=== PATIENT | female | born 1995 | race American Indian/Alaskan Native ===

== ENCOUNTER 2021-02-01 14:27 | Emergency (ER) | payer SELFPAY ==
[2021-02-01 14:47] VITALS: BP 133/82
--- NOTE | 2021-02-01 15:17 | Event Note ---
ED Screening Note Date of service: 02/01/21 Time: 15:16 ED Screening Note: 25-year-old female with no significant past medical history presents the emergency department chief complaint of intermittent dizziness that is now resolved. She reports she worked out and felt dizzy after which is abnormal for her. She was not sure if she was anemic but she has no history of anemia. She denies any known past medical history, current medications or known allergies to medications. This initial assessment/diagnostic orders/clinical plan/treatment(s) is/are subject to change based on patients health status, clinical progression and re- assessment by fellow clinical providers in the ED. Further treatment and workup at subsequent clinical providers discretion. Patient/guardian urged not to elope from the ED as their condition may be serious if not clinically assessed and managed. Initial orders include: EKG, CBC, CMP, urinalysis, urine test
[2021-02-01 16:07] LABS: Basophils % (Auto) 0.3 % (0.0-1.8); Eosinophils % (Auto) 0.4 % (0.0-4.3); Hematocrit 39.7 % (30.3-42.9); Hemoglobin 13.7 gm/dl (10.1-14.3); Lymphocytes % (Auto) 31.8 % (13.4-35.0); Mean Corpuscular HGB Conc 35 % (30-34); Mean Corpuscular Volume 84 fl (79-97); Monocytes # (Auto) 0.4 K/mm3 (0.0-0.8); Monocytes % (Auto) 5.7 % (0.0-7.3); Platelet Count 238 K/mm3 (140-440); Red Cell Distribution Width 12.8 % (13.2-15.2)
[2021-02-01 16:11] LABS: Alanine Aminotransferase 10 units/L (7-56); Albumin 4.4 g/dL (3.9-5); BUN/Creatinine Ratio 11; Blood Urea Nitrogen 9 mg/dL (7-17); Hemolysis Index 13
[2021-02-01 16:13] LABS: Bilirubin,Urine NEG (Negative); Blood,Urine NEG (Negative); Color,Urine Yellow (Yellow); Mucus,Urine FEW /HPF; Protein,Urine <15 mg/dL mg/dL (Negative); Urobilinogen,Urine < 2.0 mg/dL (<2.0); WBC,Urine < 1.0 /HPF (0.0-6.0)
[2021-02-01 16:15] LABS: RBC,Urine < 1.0 /HPF (0.0-6.0)
--- NOTE | 2021-02-01 17:10 | Emergency Department Report ---
ED General Adult HPI - General Chief complaint: Dizziness Stated complaint: DIZZINESS/WEAKNESS Time Seen by Provider: 02/01/21 15:13 Source: patient Mode of arrival: Ambulatory Limitations: No Limitations - History of Present Illness Initial comments: 25-year-old female with no significant past medical history presents the emergency department chief complaint of intermittent dizziness that is now resolved. She reports she worked out and felt dizzy after which is abnormal for her. She was not sure if she was anemic but she has no history of anemia. She denies any known past medical history, current medications or known allergies to medications. She also reports she recently had a sore throat and went saw a natural doctor who diagnosed her with strep throat and gave her a natural spray that has been helping clear up her throat is unsure if this is related. Severity scale (0 -10): 0 - Related Data Allergies Allergy/AdvReac Type Severity Reaction Status Date / Time No Known Allergies Allergy Unverified 02/01/21 14:45 ED Review of Systems ROS: Stated complaint: DIZZINESS/WEAKNESS Other details as noted in HPI Comment: All other systems reviewed and negative Constitutional: denies: chills, fever Eyes: denies: eye pain, eye discharge, vision change ENT: denies: ear pain, throat pain Respiratory: denies: cough, shortness of breath, wheezing Cardiovascular: denies: chest pain, palpitations Endocrine: no symptoms reported Gastrointestinal: denies: abdominal pain, nausea, diarrhea Genitourinary: denies: urgency, dysuria, discharge Musculoskeletal: denies: back pain, joint swelling, arthralgia Skin: denies: rash, lesions Neurological: denies: headache, weakness, paresthesias Psychiatric: denies: anxiety, depression Hematological/Lymphatic: denies: easy bleeding, easy bruising ED Past Medical Hx - Past Medical History Previous Medical History?: No - Surgical History Past Surgical History?: No ED Physical Exam - General Limitations: No Limitations General appearance: alert, in no apparent distress - Head Head exam: Present: atraumatic, normocephalic - Eye Eye exam: Present: normal appearance, PERRL, EOMI Pupils: Present: normal accommodation - ENT ENT exam: Present: normal exam, normal orophraynx, mucous membranes moist - Neck Neck exam: Present: normal inspection, full ROM. Absent: tenderness, meningismus - Respiratory Respiratory exam: Present: normal lung sounds bilaterally. Absent: respiratory distress, wheezes, rales, rhonchi, stridor - Cardiovascular Cardiovascular Exam: Present: regular rate, normal rhythm, normal heart sounds. Absent: systolic murmur, diastolic murmur, rubs, gallop - GI/Abdominal GI/Abdominal exam: Present: soft, normal bowel sounds. Absent: distended, tenderness, guarding, rebound, rigid - Extremities Exam Extremities exam: Present: normal inspection, full ROM, normal capillary refill. Absent: tenderness - Back Exam Back exam: Present: normal inspection, full ROM. Absent: tenderness, CVA tenderness (R) - Neurological Exam Neurological exam: Present: alert, oriented X3, CN II-XII intact, normal gait, other (Normal finger-nose, normal heel barth, normal gait without ataxia, negative Romberg sign) - Psychiatric Psychiatric exam: Present: normal affect, normal mood - Skin Skin exam: Present: warm, dry, intact, normal color. Absent: rash ED Course Vital Signs 02/01/21 14:45 Temperature 98.9 F Pulse Rate 105 H Respiratory 18 Rate Blood Pressure 133/82 [Right] O2 Sat by Pulse 98 Oximetry ED Medical Decision Making - Lab Data Result diagrams: 02/01/21 15:24 02/01/21 15:24 Lab Results 02/01/21 02/01/21 02/01/21 Range/Units 15:24 15:24 15:24 WBC 6.2 (4.5-11.0) K/mm3 RBC 4.70 (3.65-5.03) M/mm3 Hgb 13.7 (10.1-14.3) gm/dl Hct 39.7 (30.3-42.9) % MCV 84 (79-97) fl MCH 29 (28-32) pg MCHC 35 H (30-34) % RDW 12.8 L (13.2-15.2) % Plt Count 238 (140-440) K/mm3 Lymph % (Auto) 31.8 (13.4-35.0) % Clinton % (Auto) 5.7 (0.0-7.3) % Eos % (Auto) 0.4 (0.0-4.3) % Baso % (Auto) 0.3 (0.0-1.8) % Lymph # (Auto) 2.0 (1.2-5.4) K/mm3 Clinton # (Auto) 0.4 (0.0-0.8) K/mm3 Eos # (Auto) 0.0 (0.0-0.4) K/mm3 Baso # (Auto) 0.0 (0.0-0.1) K/mm3 Seg Neutrophils % 61.8 (40.0-70.0) % Seg Neutrophils # 3.8 (1.8-7.7) K/mm3 Sodium 136 L (137-145) mmol/L Potassium 4.3 (3.6-5.0) mmol/L Chloride 102.7 (98-107) mmol/L Carbon Dioxide 22 (22-30) mmol/L Anion Gap 16 mmol/L BUN 9 (7-17) mg/dL Creatinine 0.8 (0.6-1.2) mg/dL Estimated GFR > 60 ml/min BUN/Creatinine Ratio 11 % Glucose 85 (65-100) mg/dL Calcium 9.0 (8.4-10.2) mg/dL Total Bilirubin 0.50 (0.1-1.2) mg/dL AST 12 (5-40) units/L ALT 10 (7-56) units/L Alkaline Phosphatase 55 (35-129) units/L Total Protein 7.4 (6.3-8.2) g/dL Albumin 4.4 (3.9-5) g/dL Albumin/Globulin Ratio 1.5 % HCG, Qual Negative (Negative) Urine Color (Yellow) Urine Turbidity (Clear) Urine pH (5.0-7.0) Ur Specific Leburn (1.003-1.030) Urine Protein (Negative) mg/dL Urine Glucose (UA) (Negative) mg/dL Urine Ketones (Negative) mg/dL Urine Blood (Negative) Urine Nitrite (Negative) Urine Bilirubin (Negative) Urine Urobilinogen (<2.0) mg/dL Ur Leukocyte Esterase (Negative) Urine WBC (Auto) (0.0-6.0) /HPF Urine RBC (Auto) (0.0-6.0) /HPF U Epithel Cells (Auto) (0-13.0) /HPF Urine Mucus /HPF 02/01/21 Range/Units Unknown WBC (4.5-11.0) K/mm3 RBC (3.65-5.03) M/mm3 Hgb (10.1-14.3) gm/dl Hct (30.3-42.9) % MCV (79-97) fl MCH (28-32) pg MCHC (30-34) % RDW (13.2-15.2) % Plt Count (140-440) K/mm3 Lymph % (Auto) (13.4-35.0) % Clinton % (Auto) (0.0-7.3) % Eos % (Auto) (0.0-4.3) % Baso % (Auto) (0.0-1.8) % Lymph # (Auto) (1.2-5.4) K/mm3 Clinton # (Auto) (0.0-0.8) K/mm3 Eos # (Auto) (0.0-0.4) K/mm3 Baso # (Auto) (0.0-0.1) K/mm3 Seg Neutrophils % (40.0-70.0) % Seg Neutrophils # (1.8-7.7) K/mm3 Sodium (137-145) mmol/L Potassium (3.6-5.0) mmol/L Chloride (98-107) mmol/L Carbon Dioxide (22-30) mmol/L Anion Gap mmol/L BUN (7-17) mg/dL Creatinine (0.6-1.2) mg/dL Estimated GFR ml/min BUN/Creatinine Ratio % Glucose (65-100) mg/dL Calcium (8.4-10.2) mg/dL Total Bilirubin (0.1-1.2) mg/dL AST (5-40) units/L ALT (7-56) units/L Alkaline Phosphatase (35-129) units/L Total Protein (6.3-8.2) g/dL Albumin (3.9-5) g/dL Albumin/Globulin Ratio % HCG, Qual (Negative) Urine Color Yellow (Yellow) Urine Turbidity Clear (Clear) Urine pH 5.0 (5.0-7.0) Ur Specific Leburn 1.015 (1.003-1.030) Urine Protein <15 mg/dl (Negative) mg/dL Urine Glucose (UA) Neg (Negative) mg/dL Urine Ketones Neg (Negative) mg/dL Urine Blood Neg (Negative) Urine Nitrite Neg (Negative) Urine Bilirubin Neg (Negative) Urine Urobilinogen < 2.0 (<2.0) mg/dL Ur Leukocyte Esterase Neg (Negative) Urine WBC (Auto) < 1.0 (0.0-6.0) /HPF Urine RBC (Auto) < 1.0 (0.0-6.0) /HPF U Epithel Cells (Auto) 1.0 (0-13.0) /HPF Urine Mucus Few /HPF - Medical Decision Making Patient nontoxic in no acute distress. Vital signs are stable. She had no dizziness currently, labs were unremarkable. She had no chest pain initially an EKG was ordered however without chest pain shortness of breath palpitations I do not think this is a high yield test at this time. Patient stated this was after being treated for strep throat by a natural pathic doctor. On her throat exam she did have some mild erythema with exudate but no peritonsillar bulging, retropharyngeal bulging or television. She had no vertigo and no focal neur ologic findings on exam specifically no posterior circulation symptoms. Patient will be discharged stable condition with outpatient PCP follow-up and return to the ER with any change or worsening symptoms. She verbalized understanding the diagnosis, treatment plan and follow-up instructions and all of her questions were answered. - Differential Diagnosis Dehydration, anemia, viral illness Critical care attestation.: If time is entered above; I have spent that time in minutes in the direct care of this critically ill patient, excluding procedure time. ED Disposition Clinical Impression: Lightheaded Disposition: DC-01 TO HOME OR SELFCARE Is pt being admited?: No Instructions: Dizziness, [id number] Referrals: [facility] [Provider Group] - 3-5 Days CHU COLVIN MD [Staff Physician] - 3-5 Days Time of Disposition: 17:09
== END 2021-02-01 17:34 | disposition home or self-care (01) ==
LOC: ED 14:27
DX: R42 Dizziness and giddiness (principal)
CPT/HCPCS: 36415; 80053; 81001; 84703; 85025; 99283

== ENCOUNTER 2021-09-22 17:08 | Emergency (ER) | payer SELFPAY ==
[2021-09-22] MEDS ORDERED: ACETAMINOPHEN 500 MG TAB PO ONE (17:18)
--- NOTE | 2021-09-22 17:18 | Emergency Department Report ---
ED Abdominal Pain HPI - General Chief Complaint: Urogenital-Female Stated Complaint: VAGINAL PAIN Time Seen by Provider: 09/22/21 17:17 Source: patient Mode of arrival: Ambulatory Limitations: No Limitations - History of Present Illness Initial Comments: Patient presents with lower abdominal pain. The pain is cramping in the suprapubic area. It does not radiate or migrate. She has not had vaginal bleeding or discharge out of the ordinary. There is no trauma associated with this. She has no flank pain. The pain is not migratory. It does not radiate. It does seem to wax and wane. She has not taken anything for pain. It has been present for the last several days now. She decided to come here for evaluation and treatment due to the pain itself. She has never had pain like this before. - Related Data Previous Rx's Medication Instructions Recorded Last Taken Type Doxycycline Monohydrate 100 mg PO BID #20 capsule 09/22/21 Unknown Rx [Doxycycline Monohydrate CAP] Allergies Allergy/AdvReac Type Severity Reaction Status Date / Time No Known Allergies Allergy Unverified 02/01/21 14:45 ED Review of Systems ROS: Stated complaint: VAGINAL PAIN Other details as noted in HPI Comment: All other systems reviewed and negative Constitutional: denies: fever Eyes: denies: eye pain ENT: denies: throat pain Respiratory: denies: cough Cardiovascular: denies: chest pain Endocrine: denies: unexplained weight loss Gastrointestinal: as per HPI Genitourinary: denies: urgency Musculoskeletal: denies: back pain Skin: denies: rash Neurological: denies: headache Hematological/Lymphatic: denies: easy bruising ED Past Medical Hx - Past Medical History Previous Medical History?: No - Family History Family history: no significant - Medications Home Medications: Home Medications Medication Instructions Recorded Confirmed Last Taken Type Doxycycline Monohydrate 100 mg PO BID #20 capsule 09/22/21 Unknown Rx [Doxycycline Monohydrate CAP] ED Physical Exam - General Limitations: No Limitations, Other (Pulse ox noted and normal) General appearance: alert, in no apparent distress - Head Head exam: Present: atraumatic, normocephalic, normal inspection - Eye Eye exam: Present: normal appearance, EOMI. Absent: scleral icterus - ENT ENT exam: Present: normal orophraynx, normal external ear exam - Neck Neck exam: Present: normal inspection. Absent: meningismus - Respiratory Respiratory exam: Present: normal lung sounds bilaterally. Absent: respiratory distress - Cardiovascular Cardiovascular Exam: Present: regular rate, normal rhythm - GI/Abdominal GI/Abdominal exam: Present: soft, tenderness (Suprapubic). Absent: guarding, rebound - Extremities Exam Extremities exam: Present: normal capillary refill - Back Exam Back exam: Absent: CVA tenderness (R), CVA tenderness (L) - Neurological Exam Neurological exam: Present: alert, oriented X3, normal gait. Absent: motor sensory deficit - Psychiatric Psychiatric exam: Present: normal affect, normal mood - Skin Skin exam: Present: warm, dry ED Course Vital Signs 09/22/21 17:17 Temperature 98.4 F Pulse Rate 97 H Respiratory 14 Rate Blood Pressure 123/82 O2 Sat by Pulse 100 Oximetry - Reevaluation(s) Reevaluation #1: 09/22/21 17:18 Labs ordered. Old records noted. Reevaluation #2: 09/22/21 20:41 UA was noted. ED Medical Decision Making - Medical Decision Making Patient present with lower abdominal pain and some concern for infectious pathology. There is no evidence of urinary infection. She did not have hematuria to suggest ureteral colic. Patient did not have , so ectopic was also excluded. There was concern for sexually transmitted infection and the patient was treated empirically for this. There was no right lower quadrant pain to suggest appendicitis. There is no left lower quadrant pain suggestive of diverticular disease. She had no peritoneal finding. Critical Care Time: No Critical care attestation.: If time is entered above; I have spent that time in minutes in the direct care of this critically ill patient, excluding procedure time. ED Disposition Clinical Impression: Vaginal pain Disposition: HOME / SELF CARE / HOMELESS Is pt being admited?: No Condition: Stable Instructions: Pelvic Pain, Female, [id number] Additional Instructions: Push fluids. Return for problems. Follow-up with your regular doctor. Take all the antibiotics. Avoid intercourse until your symptoms resolve. Prescriptions: Doxycycline Monohydrate [Doxycycline Monohydrate CAP] 100 mg PO BID #20 capsule Referrals: PRIMARY CAREMD [Primary Care Provider] - 3-5 Days JOYCE MONSIVAIS MD [Staff Physician] - 3-5 Days
[2021-09-22 17:19] VITALS: BP 123/82
[2021-09-22 20:17] LABS: Bilirubin,Urine NEG (Negative); Blood,Urine NEG (Negative); Color,Urine Yellow (Yellow); Mucus,Urine FEW /HPF; Protein,Urine <15 mg/dL mg/dL (Negative); Urobilinogen,Urine < 2.0 mg/dL (<2.0)
[2021-09-22 20:24] LABS: HCG Qualitative,Urine Negative (Negative)
== END 2021-09-22 21:18 | disposition home or self-care (01) ==
LOC: ED 17:08
DX: R10.2 Pelvic and perineal pain (principal)
CPT/HCPCS: 81001; 81025; 99283